=== PATIENT | female | born 1965 | race Caucasian/White ===

== ENCOUNTER 2024-02-18 07:35 | Emergency (ER) | payer BC ==
[2024-02-18] MEDS: Morphine 4 MG/ML Syringe IVPUSH ONE (08:21)
[2024-02-18] MEDS: Morphine 2 MG/ML SYRINGE IVPUSH ONE (08:44)
[2024-02-18] MEDS: Sodium Chloride 0.9% 10 ML Syringe FLUSH PRN (08:47)
[2024-02-18] MEDS: HYDROmorphone 0.5 MG/0.5 ML Syringe IVPUSH ONE (10:19)
== END 2024-02-18 11:15 ==
LOC: JD.ED 07:35
DX: S82.392A Other fracture of lower end of left tibia, initial encounter for closed fracture (principal); J45.909 Unspecified asthma, uncomplicated; Z79.51 Long term (current) use of inhaled steroids; Z79.899 Other long term (current) drug therapy; Z86.16 Personal history of COVID-19; Z90.710 Acquired absence of both cervix and uterus; W10.9XXA Fall (on) (from) unspecified stairs and steps, initial encounter; Y93.01 Activity, walking, marching and hiking
CPT/HCPCS: 29505; 73590; 73610; 73630; 96374; 96375; 99284; J1170; J2270; J3490